=== PATIENT | female | born 1980 | race Two or more races ===

== ENCOUNTER 2018-04-03 20:38 | Outpatient (CLI) | payer OTHER | END 2018-04-03 20:39 | disposition critical access hospital (66) | LOC: EMS 20:38 | PROVIDERS: ATTEND Surgery | DX: T50.902A Poisoning by unspecified drugs, medicaments and biological substances, intentional self-harm, initial encounter (principal); R40.20 Unspecified coma; Y92.009 Unspecified place in unspecified non-institutional (private) residence as the place of occurrence of the external cause | CPT/HCPCS: A0425; A0427 ==

== ENCOUNTER 2018-04-03 20:50 | Emergency (ER) | payer OTHER ==
[2018-04-03] MEDS ORDERED: NALOXONE 0.4 MG/ML VIAL IVP STA (20:59)
[2018-04-03 21:14] LABS: BASOPHILS # (AUTO) 0.1 10^3/uL (0.0-0.1); BASOPHILS % (AUTO) 0.7 %; EOSINOPHILS # (AUTO) 0.1 10^3/uL (0.0-0.7); EOSINOPHILS % (AUTO) 1.3 %; HGB - HEMOGLOBIN 11.8 g/dL (12.0-16.0); LYMPHOCYTES # (AUTO) 2.7 10^3/uL (1.5-3.5); LYMPHOCYTES % (AUTO) 28.2 %; MEAN CORPUSCULAR HEMOGLOBIN 32.3 pg (27.0-31.0); MEAN CORPUSCULAR VOLUME 94.8 fL (81.0-99.0); MEAN PLATELET VOLUME 8.4 fL (7.9-10.8); MONOCYTES # (AUTO) 0.9 10^3/uL (0.0-1.0); MONOCYTES % (AUTO) 9.8 %; NEUTROPHILS # (AUTO) 5.8 10^3/uL (1.5-6.6); PLT - PLATELET COUNT 300 10^3/uL (130-450); RED BLOOD COUNT 3.67 10^6/uL (4.20-5.40); RED CELL DISTRIBUTION WIDTH 14.8 % (12.0-15.0); WHITE BLOOD COUNT 9.7 x10^3/uL (4.8-10.8)
[2018-04-03] MEDS ORDERED: SODIUM CHLORIDE 0.9% 1,000 ML IV ONE (21:15)
[2018-04-03 21:19] LABS: INR 1.1 (0.8-1.2); PT - PROTHROMBIN TIME 12.1 secs (9.9-12.6)
[2018-04-03 21:30] LABS: ALBUMIN 3.7 g/dL (3.2-5.5); ALBUMIN/GLOBULIN RATIO 1.1 (1.0-2.2); ALKALINE PHOSPHATASE 46 IU/L (42-121); ALT ALANINE AMINOTRANSFERASE 16 IU/L (10-60); AST ASPARTATE AMINOTRANSFERASE 18 IU/L (10-42); BILIRUBIN,TOTAL 0.5 mg/dL (0.2-1.0); BUN - BLOOD UREA NITROGEN 11 mg/dL (6-20); CALCIUM 9.3 mg/dL (8.5-10.3); CARBON DIOXIDE - CO2 22 mmol/L (21-32); CHLORIDE 105 mmol/L (101-111); CREATININE 0.7 mg/dL (0.4-1.0); GFR - MDRD 94 (>89); GLUCOSE 77 mg/dL (70-100); LIPASE 26 U/L (22-51); MAGNESIUM 1.9 mg/dL (1.7-2.8); PHOSPHORUS 3.8 mg/dL (2.5-4.6); SALICYLATE < 6.0 mg/dL; SODIUM 137 mmol/L (135-145); TOTAL PROTEIN 7.2 g/dL (6.7-8.2)
[2018-04-03 21:36] LABS: ACETAMINOPHEN < 10 ug/mL (10-30)
[2018-04-03 21:37] LABS: HCG UR QUAL NEGATIVE
[2018-04-03 21:38] LABS: BILIRUBIN,URINE NEGATIVE (NEGATIVE); CLARITY,URINE HAZY (CLEAR); GLUCOSE, URINE (UA) NEGATIVE (NEGATIVE); KETONES,URINE (UA) TRACE mg/dL (NEGATIVE); LEUKOCYTE ESTERASE, URINE NEGATIVE (NEGATIVE); NITRITE,URINE NEGATIVE (NEGATIVE); OCCULT BLOOD,URINE NEGATIVE (NEGATIVE); PH,URINE 5.5 PH (5.0-7.5); PROTEIN,URINE NEGATIVE (NEGATIVE); UROBILINOGEN,URINE 0.2 (NORMAL) E.U./dL (NORMAL)
[2018-04-03 21:39] LABS: AMPHETAMINE SCREEN,URINE NEGATIVE (NEGATIVE); BENZODIAZEPINES SCREEN, URINE POSITIVE (NEGATIVE); COCAINE SCREEN URINE NEGATIVE (NEGATIVE); METHADONE SCREEN, URINE NEGATIVE (NEGATIVE); METHAMPHETAMINES SCREEN, URINE NEGATIVE (NEGATIVE); MUDS CUTOFF CONCENTRATIONS CUTOFF CONC BELOW:; OPIATE SCREEN, URINE NEGATIVE (NEGATIVE); OXYCODONE SCREEN, URINE NEGATIVE (NEGATIVE); PROPOXYPHENE SCREEN, URINE NEGATIVE (NEGATIVE); TRICYCLIC ANTIDEPRESSANT,URINE NEGATIVE (NEGATIVE)
[2018-04-03 21:42] LABS: BACTERIA,URINE None Seen /HPF (None Seen); RBC,URINE 0-5 /HPF (0-5); SQUAMOUS EPITHELIAL CELL,UR FEW Squamous (<= Few)
[2018-04-03 21:43] LABS: AMORPHOUS SEDIMENT,UR Moderate /LPF
[2018-04-03 21:50] LABS: VBG PCO2 42.7 mmHg (41-51); VBG PH 7.359 (7.31-7.41); VBG PO2 33.3 mmHg (25-47)
[2018-04-03 21:51] LABS: VBG BASE EXCESS -1.9 mmol/L (-2 - +2); VBG TOTAL CO2 24.8 mmol/L (24-29)
--- NOTE | 2018-04-03 21:52 | XRAY Report ---
EXAM: CHEST RADIOGRAPHY EXAM DATE: 04/03/2018 09:22 PM. CLINICAL HISTORY: Fever, hx of lung failure. COMPARISON: None. TECHNIQUE: 1 view. FINDINGS: Lungs/Pleura: No consolidative process or focal airspace disease. Lung volumes are symmetric in flow. Mediastinum: Within exam limitations, the cardiomediastinal contour is normal. Other: None. IMPRESSION: Low lung volumes. Otherwise negative. [facility] Referring Provider Line: [phone] SITE ID: [id number]
--- NOTE | 2018-04-03 21:52 | XRAY Preliminary Report ---
Exam: XR CHEST 1 VIEW X-RAY IMPRESSION: Low lung volumes. Otherwise negative. [facility] SITE ID: [id number]
--- NOTE | 2018-04-04 02:36 | ED Physician Documentation ---
PD HPI OVERDOSE - Stated complaint Stated Complaint: OD - Chief complaint Chief Complaint: MHE - History obtained from History obtained from: EMS - History of Present Illness Timing - onset: Today Subtance(s) ingested: Multiple, Benzo, Antidepressent Associated symptoms: Decreased responsiveness Contributing factors: Suicidal Similar symptoms before: No diagnosis Recently seen: Not recently seen - Additional information Additional information: Patient is a 38 year old female with a history of depression who was brought in by ems for overdose and apparent suicide attempt. According to ems patient is currently going through a divorce, and has some other current life stressors. Tonight patient had made comments about wanting to commit suicide via texts and took her benzos and prozac adn took a bath. Patient passed out in the bath tub and was found there by who called ems. Review of Systems Unable to obtain: Unresponsive, AMS PD PAST MEDICAL HISTORY - Past Medical History Past Medical History: Yes Psych: Depression, Anxiety - Past Surgical History Past Surgical History: No - Present Medications Home Medications: Ambulatory Orders Medication Instructions Recorded Confirmed Home Medications Unobtainable 04/03/18 04/03/18 [HOME MEDICATIONS UNOBTAINABLE] - Allergies Allergies/Adverse Reactions: Allergies Allergy/AdvReac Type Severity Reaction Status Date / Time No Known Drug Allergies Allergy Verified 04/03/18 21:10 - Social History Does the pt smoke?: No Smoking Status: Never smoker Does the pt drink ETOH?: Yes ETOH Use: Wine, Beer, Liquor Does the pt have substance abuse?: No - Immunizations Immunizations are current?: Yes - POLST Patient has POLST: No PD ED PE NORMAL - Vitals Vital signs reviewed: Yes - General General: Well developed/nourished - HEENT HEENT: Atraumatic, Moist mucous membranes - Cardiac Cardiac: RRR - Abdomen Abdomen: Soft - Derm Derm: Normal color PD ED PE EXPANDED - GCS Eye Opening: None Motor: Localizes to Pain Verbal: Incomprehensible Total: 8 Results - Vitals Vitals: Vital Signs - 24 hr 04/03/18 04/03/18 04/03/18 20:52 21:19 21:47 Temperature 36.1 C L Heart Rate 88 88 87 Respiratory 22 169 H 15 Rate Blood Pressure 111/78 108/69 121/73 O2 Saturation 99 93 99 04/03/18 04/03/18 04/03/18 22:25 23:36 23:45 Temperature Heart Rate 84 79 81 Respiratory 18 24 19 Rate Blood Pressure 111/73 119/70 100/63 O2 Saturation 100 100 99 04/04/18 04/04/18 04/04/18 00:07 01:00 02:13 Temperature Heart Rate 80 81 82 Respiratory 18 18 16 Rate Blood Pressure 100/63 97/59 L 102/65 O2 Saturation 98 100 100 04/04/18 04/04/18 04/04/18 03:10 03:54 04:53 Temperature Heart Rate 78 77 87 Respiratory 18 15 18 Rate Blood Pressure 107/73 105/67 105/66 O2 Saturation 100 98 100 04/04/18 05:41 Temperature Heart Rate 75 Respiratory 22 Rate Blood Pressure 111/76 O2 Saturation 100 Oxygen O2 Source Room air Oxygen Flow Rate 2 - EKG (time done) 2057 Rate: Rate (enter#) (87) Rhythm: NSR [place]: Normal Intervals: Normal ID QRS: Normal Compare to prior EKG: Old EKG unavailable - Labs Labs: Laboratory Tests 04/03/18 04/03/18 04/03/18 21:06 21:06 21:06 WBC 9.7 RBC 3.67 L Hgb 11.8 L Hct 34.8 L MCV 94.8 MCH 32.3 H MCHC 34.0 RDW 14.8 Plt Count 300 MPV 8.4 Neut # (Auto) 5.8 Lymph # (Auto) 2.7 Davis # (Auto) 0.9 Eos # (Auto) 0.1 Baso # (Auto) 0.1 Absolute Nucleated RBC 0.00 Nucleated RBC % 0.0 PT 12.1 INR 1.1 APTT 26.3 VBG pH VBG pCO2 VBG pO2 VBG HCO3 VBG Total CO2 VBG O2 Saturation VBG Base Excess Sodium 137 Potassium 4.2 Chloride 105 Carbon Dioxide 22 Anion Gap 10.0 BUN 11 Creatinine 0.7 Estimated GFR (MDRD) 94 Glucose 77 Lactic Acid Calcium 9.3 Phosphorus 3.8 Magnesium 1.9 Total Bilirubin 0.5 AST 18 ALT 16 Alkaline Phosphatase 46 Troponin I Total Protein 7.2 Albumin 3.7 Globulin 3.5 Albumin/Globulin Ratio 1.1 Lipase 26 TSH Urine Color Urine Clarity Urine pH Ur Specific [place] Urine Protein Urine Glucose (UA) Urine Ketones Urine Occult Blood Urine Nitrite Urine Bilirubin Urine Urobilinogen Ur Leukocyte Esterase Urine RBC Urine WBC Ur Squamous Epith Cells Amorphous Sediment Urine Bacteria Ur Microscopic Review Urine Culture Comments Urine HCG, Qual Salicylates < 6.0 Urine Opiates Screen Ur Oxycodone Screen Urine Methadone Screen Ur Propoxyphene Screen Acetaminophen < 10 L Ur Barbiturates Screen Ur Tricyclics Screen Ur Phencyclidine Scrn Ur Amphetamine Screen U Methamphetamines Scrn U Benzodiazepines Scrn Urine Cocaine Screen U Cannabinoids Screen Ethyl Alcohol 11.4 04/03/18 04/03/18 04/03/18 21:06 21:06 21:15 WBC RBC Hgb Hct MCV MCH MCHC RDW Plt Count MPV Neut # (Auto) Lymph # (Auto) Davis # (Auto) Eos # (Auto) Baso # (Auto) Absolute Nucleated RBC Nucleated RBC % PT INR APTT VBG pH VBG pCO2 VBG pO2 VBG HCO3 VBG Total CO2 VBG O2 Saturation VBG Base Excess Sodium Potassium Chloride Carbon Dioxide Anion Gap BUN Creatinine Estimated GFR (MDRD) Glucose Lactic Acid Calcium Phosphorus Magnesium Total Bilirubin AST ALT Alkaline Phosphatase Troponin I < 0.04 Total Protein Albumin Globulin Albumin/Globulin Ratio Lipase TSH 3.92 Urine Color Urine Clarity Urine pH Ur Specific [place] Urine Protein Urine Glucose (UA) Urine Ketones Urine Occult Blood Urine Nitrite Urine Bilirubin Urine Urobilinogen Ur Leukocyte Esterase Urine RBC Urine WBC Ur Squamous Epith Cells Amorphous Sediment Urine Bacteria Ur Microscopic Review Urine Culture Comments Urine HCG, Qual Salicylates Urine Opiates Screen NEGATIVE Ur Oxycodone Screen NEGATIVE Urine Methadone Screen NEGATIVE Ur Propoxyphene Screen NEGATIVE Acetaminophen Ur Barbiturates Screen NEGATIVE Ur Tricyclics Screen NEGATIVE Ur Phencyclidine Scrn NEGATIVE Ur Amphetamine Screen NEGATIVE U Methamphetamines Scrn NEGATIVE U Benzodiazepines Scrn POSITIVE H Urine Cocaine Screen NEGATIVE U Cannabinoids Screen NEGATIVE Ethyl Alcohol 04/03/18 04/03/18 04/03/18 21:15 21:15 21:45 WBC RBC Hgb Hct MCV MCH MCHC RDW Plt Count MPV Neut # (Auto) Lymph # (Auto) Davis # (Auto) Eos # (Auto) Baso # (Auto) Absolute Nucleated RBC Nucleated RBC % PT INR APTT VBG pH VBG pCO2 VBG pO2 VBG HCO3 VBG Total CO2 VBG O2 Saturation VBG Base Excess Sodium Potassium Chloride Carbon Dioxide Anion Gap BUN Creatinine Estimated GFR (MDRD) Glucose Lactic Acid 1.5 Calcium Phosphorus Magnesium Total Bilirubin AST ALT Alkaline Phosphatase Troponin I Total Protein Albumin Globulin Albumin/Globulin Ratio Lipase TSH Urine Color YELLOW Urine Clarity HAZY Urine pH 5.5 Ur Specific [place] >=1.030 H >1.030 Urine Protein NEGATIVE Urine Glucose (UA) NEGATIVE Urine Ketones TRACE Urine Occult Blood NEGATIVE Urine Nitrite NEGATIVE Urine Bilirubin NEGATIVE Urine Urobilinogen 0.2 (NORMAL) Ur Leukocyte Esterase NEGATIVE Urine RBC 0-5 Urine WBC 0-3 Ur Squamous Epith Cells FEW Squamous Amorphous Sediment Moderate Urine Bacteria None Seen Ur Microscopic Review INDICATED Urine Culture Comments NOT INDICATED Urine HCG, Qual NEGATIVE Salicylates Urine Opiates Screen Ur Oxycodone Screen Urine Methadone Screen Ur Propoxyphene Screen Acetaminophen Ur Barbiturates Screen Ur Tricyclics Screen Ur Phencyclidine Scrn Ur Amphetamine Screen U Methamphetamines Scrn U Benzodiazepines Scrn Urine Cocaine Screen U Cannabinoids Screen Ethyl Alcohol 04/03/18 21:45 WBC RBC Hgb Hct MCV MCH MCHC RDW Plt Count MPV Neut # (Auto) Lymph # (Auto) Davis # (Auto) Eos # (Auto) Baso # (Auto) Absolute Nucleated RBC Nucleated RBC % PT INR APTT VBG pH 7.359 VBG pCO2 42.7 VBG pO2 33.3 VBG HCO3 23.5 VBG Total CO2 24.8 VBG O2 Saturation 62.2 VBG Base Excess -1.9 Sodium Potassium Chloride Carbon Dioxide Anion Gap BUN Creatinine Estimated GFR (MDRD) Glucose Lactic Acid Calcium Phosphorus Magnesium Total Bilirubin AST ALT Alkaline Phosphatase Troponin I Total Protein Albumin Globulin Albumin/Globulin Ratio Lipase TSH Urine Color Urine Clarity Urine pH Ur Specific [place] Urine Protein Urine Glucose (UA) Urine Ketones Urine Occult Blood Urine Nitrite Urine Bilirubin Urine Urobilinogen Ur Leukocyte Esterase Urine RBC Urine WBC Ur Squamous Epith Cells Amorphous Sediment Urine Bacteria Ur Microscopic Review Urine Culture Comments Urine HCG, Qual Salicylates Urine Opiates Screen Ur Oxycodone Screen Urine Methadone Screen Ur Propoxyphene Screen Acetaminophen Ur Barbiturates Screen Ur Tricyclics Screen Ur Phencyclidine Scrn Ur Amphetamine Screen U Methamphetamines Scrn U Benzodiazepines Scrn Urine Cocaine Screen U Cannabinoids Screen Ethyl Alcohol PD MEDICAL DECISION MAKING - ED course Complexity details: reviewed old records, reviewed results, re-evaluated patient , considered differential, d/w patient, d/w business systems consultant ED course: Patient was seen and examined at bedside. patient was minimally responsive but she was maintaining her airway and vital signs were stable. ekg was performed and showed normal qrs and qt. labs were drawn and urine was collected. Poison control was contacted. Patient was observed in the emergency department overnight. After about 4-5 hours patient woke up and was cognizant. [facility] was dispatched and came to evaluate the patient. DM was able to talk with the , the mother and a close friend with whom the patient is going to move in with today. Patient was alert and oriented and stated that she did not actually want to . patient was cleared by [facility]. patient had close friends who would be with her and patient was given outpatient therapy follow up. Patient was comfortable with the plan. patient was discharged in stable condition. - Sepsis Event Vital Signs: Vital Signs - 24 hr 04/03/18 04/03/18 04/03/18 20:52 21:19 21:47 Temperature 36.1 C L Heart Rate 88 88 87 Respiratory 22 169 H 15 Rate Blood Pressure 111/78 108/69 121/73 O2 Saturation 99 93 99 04/03/18 04/03/18 04/03/18 22:25 23:36 23:45 Temperature Heart Rate 84 79 81 Respiratory 18 24 19 Rate Blood Pressure 111/73 119/70 100/63 O2 Saturation 100 100 99 04/04/18 04/04/18 04/04/18 00:07 01:00 02:13 Temperature Heart Rate 80 81 82 Respiratory 18 18 16 Rate Blood Pressure 100/63 97/59 L 102/65 O2 Saturation 98 100 100 04/04/18 04/04/18 04/04/18 03:10 03:54 04:53 Temperature Heart Rate 78 77 87 Respiratory 18 15 18 Rate Blood Pressure 107/73 105/67 105/66 O2 Saturation 100 98 100 04/04/18 05:41 Temperature Heart Rate 75 Respiratory 22 Rate Blood Pressure 111/76 O2 Saturation 100 Oxygen O2 Source Room air Oxygen Flow Rate 2 Departure - Departure Disposition: 01 Home, Self Care Clinical Impression: Depression, Medication overdose Condition: Stable Instructions: ED Stress React Follow-Up: Don Berg ARNP [Primary Care Provider] - Comments: The crisis hotline number is [phone], you should call that hotline or return to the emergency department if you have any thoughts of hurting yourself again. It is important to establish a good relationship with a therapist, and friends that can help you through this.
[2018-04-04 05:42] VITALS: BP 111/76
== END 2018-04-04 06:07 | disposition home or self-care (01) ==
LOC: ED 20:50
DX: F32.9 Major depressive disorder, single episode, unspecified (principal); T43.222A Poisoning by selective serotonin reuptake inhibitors, intentional self-harm, initial encounter
CPT/HCPCS: 36415; 51702; 71045; 80053; 80306; 80307; 80320; 80329; 81001; 81003; 81025; 82803; 83605; 83690; 83735; 84100; 84443; 84484; 85025; 85610; 85730; 87086; 93005; 96361; 96374; 99284; 99285